=== PATIENT | male | born 1995 | race African-American/Black ===

== ENCOUNTER → 2017-06-03 | Outpatient (CLI) | payer OTHER ==
--- NOTE | 2017-06-03 15:04 | DIAGNOSTIC IMAGING REPORT ---
LEFT THUMB RADIOGRAPHS CLINICAL HISTORY: PAIN/SWELLING CRUSH INJ AT WORK COMPARISON: None FINDINGS: Alignment of the left thumb is anatomic. No acute fracture is identified. Joint spaces are preserved. IMPRESSION: No acute fracture or dislocation of the left thumb. Electronically signed by: Mario Lerma M.D. 06/03/2017 3:02 PM Dictated Date/Time: 06/03/2017 3:00 PM
== END | disposition home or self-care (01) ==
LOC: C.RAD1850 14:43
PROVIDERS: ATTEND Nurse Practitioner Family
DX: M79.644 Pain in right finger(s) (principal); X58.XXXA Exposure to other specified factors, initial encounter

== ENCOUNTER → 2017-06-17 | Outpatient (CLI) | payer OTHER ==
--- NOTE | 2017-06-17 14:43 | DIAGNOSTIC IMAGING REPORT ---
UPPER EXT NONJOINT WITHOUT CLINICAL HISTORY: 21 years-old Male presenting with CONTUSION OF LEFT THUMB. TECHNIQUE: Multisequence, multiplanar MR imaging of the left thumb was performed without the use of intravenous contrast. IV contrast: None. COMPARISON: Plain radiographs from 06/03/2017. FINDINGS: Localizer images: Unremarkable. Bone marrow: Normal bone marrow signal intensity. No bony edema. Articular cartilage: Articular cartilage preserved. Dorsal soft tissues: Dorsal plate intact. Ventral soft tissues: Ventral plate intact. Collateral ligaments: Ulnar and radial collateral ligaments at the metacarpophalangeal and interphalangeal joints intact. Aponeuroses of the abductor and adductor pollicis brevis tendons intact. Joint spaces: No joint effusion. Muscle: Normal thenar musculature bulk and signal intensity. Superficial soft tissue: No subcutaneous edema. No evidence of a ganglion cyst. IMPRESSION: No MR evidence of contusion or other abnormality. Electronically signed by: Adrián Alicea M.D. 06/17/2017 2:42 PM Dictated Date/Time: 06/17/2017 2:21 PM
== END | disposition home or self-care (01) ==
LOC: C.MRIBC 06-14 15:48
PROVIDERS: ATTEND Nurse Practitioner Family
DX: S69.92XA Unspecified injury of left wrist, hand and finger(s), initial encounter (principal); X58.XXXA Exposure to other specified factors, initial encounter